=== PATIENT | male | born 1955 | race Caucasian/White ===

== ENCOUNTER 2019-09-12 10:30 | Inpatient (IN) | payer MEDICAID ==
[~2019-09-12] VITALS: Ht 182.9 cm; Wt 103.2 kg
--- NOTE | 2019-09-12 10:44 | NUR ---
Pt friend; Ria [phone]
--- NOTE | 2019-09-12 11:11 | NUR ---
PATIENT SATUATED WITH MARC URINE WITH 5 MEDIUM BLOOD CLOTS ON URINE SOAKED LINEN: PERICARE, COMPLETE LINEN CHANGE, DIAPER APPLIED
--- NOTE | 2019-09-12 11:15 | NUR ---
dvd given to radiology to download from [facility], gave copy of pertinent, lab, meds, and ct report to dr Corrales for review, no orders at this time.
[2019-09-12] MEDS ORDERED: ondansetron/PF 4mg/2ml inj IV PRN ×2 (14:05→22:45)
[2019-09-12] MEDS ORDERED: acetaminophen 325mg tablet PO PRN (14:05)
[2019-09-12] MEDS ORDERED: CARV6.256 PO (15:00)
[2019-09-12] MEDS ORDERED: HYDR-4069 PO (15:00)
--- NOTE | 2019-09-12 15:15 | NUR ---
SPOKE WITH DR TEE UROLOGIST: INFORMED THAT NO CATHETER WAS ORDERED, ONLY SOME MEDICATIONS WERE RECENTLY ORDERED BY DR HOPPER. DR TEE WOULD LIKE A [address] [place] [address] WELSH INSERTED AND BLADDER MANUALLY FLUSHED WITH 200 ML STERILE NORMAL SALINE AND CONTINUE FLUSHING UNTIL NO CLOTS VISUALIZED AND WOULD LIKE A POST VOID RESIDUAL WITH THE BLADDER SCANNER
[2019-09-12] MEDS ORDERED: LIDOcaine 2% 10ml TOPICAL JELLY (Urojet) MM ONE ×2 (15:25→18:15)
[2019-09-12] MEDS ORDERED: LOSA100T57 PO (15:27)
[2019-09-12] MEDS ORDERED: LEVO25TA2 PO (15:27)
[2019-09-12] MEDS ORDERED: CLON0.2T PO (15:27)
[2019-09-12] MEDS: normal saline 1000ml 1,000 ML IV SCH (15:40)
--- NOTE | 2019-09-12 16:31 | NUR ---
PHONE REPORT TO RN [place] [facility]. PATIENT [facility] TO ROOM 355B.
--- NOTE | 2019-09-12 16:35 | NUR ---
Report received from ED RN
--- NOTE | 2019-09-12 16:38 | NUR ---
PHONE REPORT TO YONNY OSBORNE. PATIENT TO GO TO ROOM 355B ON [facility] MONITORED WITH TONEY RN. PATIENT'S ONLY BELONGINGS ARE THE SOCKS ON HIS FEET AND HIS PROSTHETIC NOSE. DISCUSSED PLAN OF CARE DR TEE TO COME SEE THE PATIENT AND MAY DO CBI. [address] UROLOGY CART TO ROOM 355. ALL VITALS, LABS FROM [facility], ASSESSMENT DISCUSSED.
--- NOTE | 2019-09-12 16:55 | NUR ---
Pt arrived to room 355B from ED
[2019-09-12 17:00] VITALS: BP 188/81
[2019-09-12] MEDS ORDERED: opium/belladonna alkaloids No. 15A 30mg rectal suppository RC PRN (17:30)
[2019-09-12 17:46] LABS: BASOPHILS # (AUTO) 0.1 X10'3 (0-0.2); LYMPHOCYTES # (AUTO) 0.9 X10'3 (1.1-4.8); MEAN CORPUSCULAR HEMOGLOBIN 30.2 PG (27.0-31.0); MONOCYTES # (AUTO) 1.2 X10'3 (0-0.9); RED BLOOD COUNT 3.31 X10'6 (4.70-6.10); RED CELL DISTRIBUTION WIDTH 16.2 % (11.5-14.5)
[2019-09-12 17:47] LABS: BASOPHILS % (AUTO) 0.8 % (0-1); EOSINOPHILS % (AUTO) 0.3 % (0-6); HEMATOCRIT 29.2 % (42.0-52.0); LYMPHOCYTES % (AUTO) 11.3 % (21-51); MEAN CORPUSCULAR HGB CONC 34.3 g/dL (33.0-36.5); MEAN CORPUSCULAR VOLUME 88.1 FL (78-98); MEAN PLATELET VOLUME 8.3 FL (7.4-10.4); MONOCYTES % (AUTO) 14.1 % (2-12); NEUTROPHILS # (AUTO) 6.1 X10'3 (1.8-7.7); NEUTROPHILS % (AUTO) 73.5 % (42-75); PLATELET COUNT 257 X10'3 (140-440); WHITE BLOOD COUNT 8.3 X10'3 (4.5-11.0)
[2019-09-12 17:57] LABS: PARTIAL THROMBOPLASTIN TIME 36 SECONDS (22-32)
[2019-09-12 17:58] LABS: ALANINE AMINOTRANSFERASE 22 U/L (12-78); ALBUMIN/GLOBULIN RATIO 0.8 (1.1-1.5); ALKALINE PHOSPHATASE 72 IU/L (46-116); ANION GAP 15 (8-16); ASPARTATE AMINO TRANSFERASE 21 U/L (10-37); BILIRUBIN,TOTAL 0.3 MG/DL (0.1-1.0); BLOOD UREA NITROGEN 52 MG/DL (7-18); BUN/CREATININE RATIO 13.3 (5.4-32.0); CALCIUM 8.2 MG/DL (8.5-10.1); CHLORIDE 104 MMOL/L (99-107); GLUCOSE 79 MG/DL (70-104); MAGNESIUM 2.1 MG/DL (1.5-2.4); PHOSPHORUS 4.3 MG/DL (2.3-4.5); POTASSIUM 3.3 MMOL/L (3.5-5.1); SODIUM 138 MMOL/L (135-145); TOTAL CARBON DIOXIDE 19.4 MMOL/L (24-32); TOTAL PROTEIN 6.8 G/DL (6.4-8.2); eGFR 16 ML/MIN
--- NOTE | 2019-09-12 18:30 | NUR ---
Patient in room [facility]. I have received report from Bebe BLANCAS and had the opportunity to ask questions and assume patient care.
--- NOTE | 2019-09-12 18:30 | NUR ---
Patient in room [facility]. I have received report from Bebe BLANCAS and had the opportunity to ask questions and assume patient care.
--- NOTE | 2019-09-12 19:00 | NUR ---
Problems reprioritized. Patient report given, questions answered & plan of care reviewed with YONNY Lazo & YONNY Miguel.
[2019-09-12 20:00] VITALS: BP 160/74
[2019-09-12 20:58] VITALS: BP 160/74
[2019-09-12] MEDS ORDERED: fentaNYL/PF 50MCG/1 ML 2ML syringe ONE ×2 (21:20→23:52)
[2019-09-12] MEDS ORDERED: midazolam 2 mg/2 ml injection ONE (21:21)
[2019-09-12] MEDS ORDERED: sevoflurane 250ml liquid IH ONE (21:30)
[2019-09-12] MEDS ORDERED: hydrALAZINE 20mg/ml inj. IV ONE (21:30)
[2019-09-12] MEDS ORDERED: ringers solution, lacted 1,000 ML IV SCH (22:42)
[2019-09-12] MEDS ORDERED: HYDROmorphone inj. 0.5 MG/0.5 ML DISP.SYRIN IV PRN ×2 (22:45)
[2019-09-12] MEDS ORDERED: morphine 4 MG/ML inj SYRINge IV PRN (22:45)
[2019-09-12] MEDS ORDERED: neostigmine methylsulfate 1 MG/ML 10ml vial ONE (23:51)
[2019-09-12] MEDS ORDERED: ondansetron/PF 4mg/2ml inj ONE (23:51)
[2019-09-12] MEDS ORDERED: LIDOcaine 2% (20mg/ml) 5ml vial ONE (23:51)
[2019-09-12] MEDS ORDERED: rocuronium 10mg/ml inj IV ONE (23:51)
[2019-09-12] MEDS ORDERED: propofol inj 20 ML IV ONE (23:51)
[2019-09-12] MEDS ORDERED: dexamethasone sod phosphate 4mg/ml inj. ONE (23:51)
[2019-09-12] MEDS ORDERED: glycopyrrolate 0.2mg/ml inj ONE (23:51)
[2019-09-13] VITALS (16 sets, daily range): BP systolic 133–204; BP diastolic 50–98
--- NOTE | 2019-09-13 00:35 | NUR ---
Received from OR via , accompanied by Anesthesiologist DR KILLIAN and report given by Anesthesiolgist. PT IS SLEEPING WITH REGULAR SNORING RESPIRATIONS, NO C/O PAIN, SKIN WARM AND PINK, PULSES +3, WELSH TO GRAVITY WITH .9NS IRRIGATION, LIGHT PINK DRAINAGE, NO SCD'S (WILL NEED TO GET ON SURGICAL-PACU OUT), PIV RIGHT AC 18G PATENT. ISTAT DRAWN, RESULTS SHOWN TO DR KILLIAN, NO NEW ORDERS.
[2019-09-13] MEDS ORDERED: HYDROcodone/acetaminophen 5mg/325mg tablet PO PRN (00:40)
[2019-09-13 00:56] LABS: ISTAT CREATININE 3.9 mg/dL (0.8-1.3); ISTAT HGB 8.5 g/dl (14.0-18.0); ISTAT IONIZED CALCIUM 1.03 mmol/L (1.03-1.32); ISTAT K 3.9 mmol/L (3.5-5.1); POC BUN/CREATININE RATIO 13.1 (5.4-32.0)
--- NOTE | 2019-09-13 01:05 | NUR ---
Report called to receiving nurse. Transferred via BED Belongings . Special Issues communicated to receiving nurse FLAVIO BLANCAS. PT IS WAKING TO VOICE, MOVING EXT X 4, NO C/O PAIN, WELSH TO GRAVITY WITH IRRIGATION RUNNING, PIV PATENT, VSS, MEETS CRITERIA FOR TRANSFER.
--- NOTE | 2019-09-13 01:05 | NUR ---
Received report from Shameka BLANCAS in the recovery room. Pt arrived back on the unit with VSS, FC to gravity with continuous bladder irrigation running, A/O and on R/A. 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 Pt has no signs of distress, will continue to monitor.
[2019-09-13] MEDS: normal saline 1000ml 1,000 ML IV SCH ×2 (02:24→08:55)
[2019-09-13] MEDS: ceFAZolin 1GM/D5W- ADD-VANTAGE 50 ML IV SCH ×3 (02:25→16:54)
[2019-09-13] MEDS ORDERED: HYDROmorphone 1 mg/ml syringe IV ONE (02:40)
[2019-09-13 06:22] LABS: BASOPHILS % (AUTO) 0.3 % (0-1); EOSINOPHILS % (AUTO) 0 % (0-6); HEMATOCRIT 27.9 % (42.0-52.0); HEMOGLOBIN 9.3 g/dl (14.0-17.9); LYMPHOCYTES # (AUTO) 0.6 X10'3 (1.1-4.8); LYMPHOCYTES % (AUTO) 3.7 % (21-51); MEAN CORPUSCULAR HEMOGLOBIN 29.6 PG (27.0-31.0); MEAN CORPUSCULAR HGB CONC 33.2 g/dL (33.0-36.5); MEAN CORPUSCULAR VOLUME 88.9 FL (78-98); MEAN PLATELET VOLUME 8.4 FL (7.4-10.4); MONOCYTES # (AUTO) 1.1 X10'3 (0-0.9); MONOCYTES % (AUTO) 7.5 % (2-12); NEUTROPHILS # (AUTO) 13.1 X10'3 (1.8-7.7); NEUTROPHILS % (AUTO) 88.5 % (42-75); PLATELET COUNT 245 X10'3 (140-440); RED BLOOD COUNT 3.14 X10'6 (4.70-6.10); RED CELL DISTRIBUTION WIDTH 16.1 % (11.5-14.5); WHITE BLOOD COUNT 14.8 X10'3 (4.5-11.0)
[2019-09-13 06:48] LABS: ALBUMIN 2.8 G/DL (3.4-5.0); ANION GAP 15 (8-16); BLOOD UREA NITROGEN 48 MG/DL (7-18); BUN/CREATININE RATIO 13.5 (5.4-32.0); CALCIUM 7.4 MG/DL (8.5-10.1); CHLORIDE 107 MMOL/L (99-107); CREATININE 3.56 MG/DL (0.60-1.10); GLUCOSE 103 MG/DL (70-104); POTASSIUM 3.8 MMOL/L (3.5-5.1); SODIUM 139 MMOL/L (135-145); TOTAL CARBON DIOXIDE 17.4 MMOL/L (24-32); eGFR 17 ML/MIN
--- NOTE | 2019-09-13 06:48 | NUR ---
Problems reprioritized. Patient report given, questions answered & plan of care reviewed with Calixto BLANCAS.
--- NOTE | 2019-09-13 07:21 | NUR ---
Problems reprioritized. Patient report given, questions answered & plan of care reviewed with Calixto BLANCAS.
[2019-09-13] MEDS: sodium bicarbonate (8.4%) inj. 75 MEQ in dextrose 5%-water 500 ML IV SCH ×4 (09:53→23:54)
--- NOTE | 2019-09-13 10:48 | NUR ---
Ultra sound tech at bedside.
[2019-09-13] MEDS: levoTHYROXINE 25mcg tablet PO SCH (11:20)
--- NOTE | 2019-09-13 17:06 | NUR ---
Student documentation: I have reviewed and agree with assessments documented by Rob Student Nurse.
--- NOTE | 2019-09-13 18:12 | NUR ---
Problems reprioritized. Patient report given, questions answered & plan of care reviewed with jared rn.
[2019-09-13] MEDS: lactobacillus rhamnosus 10,000 MMU CELLS/CAPSULE PO SCH (20:18)
[2019-09-13] MEDS: cloNIDine 0.1 mg tablet PO SCH (20:19)
[2019-09-13] MEDS: carvedilol 6.25mg tablet PO SCH (20:19)
[2019-09-13] MEDS: hyDRALAzine 10mg tablet PO SCH (20:19)
[2019-09-14] VITALS (13 sets, daily range): BP systolic 115–166; BP diastolic 51–70
[2019-09-14] MEDS: ceFAZolin 1GM/D5W- ADD-VANTAGE 50 ML IV SCH ×4 (00:26→23:26)
[2019-09-14] MEDS: sodium bicarbonate (8.4%) inj. 75 MEQ in dextrose 5%-water 500 ML IV SCH ×3 (02:24→13:22)
[2019-09-14 05:10] LABS: BASOPHILS % (AUTO) 0.3 % (0-1); EOSINOPHILS % (AUTO) 0.1 % (0-6); HEMOGLOBIN 7.1 g/dl (14.0-17.9); LYMPHOCYTES # (AUTO) 1.2 X10'3 (1.1-4.8); LYMPHOCYTES % (AUTO) 15.1 % (21-51); MEAN CORPUSCULAR HEMOGLOBIN 30.1 PG (27.0-31.0); MEAN CORPUSCULAR HGB CONC 34.1 g/dL (33.0-36.5); MEAN CORPUSCULAR VOLUME 88.2 FL (78-98); MEAN PLATELET VOLUME 8.4 FL (7.4-10.4); MONOCYTES % (AUTO) 12.2 % (2-12); NEUTROPHILS # (AUTO) 5.7 X10'3 (1.8-7.7); NEUTROPHILS % (AUTO) 72.3 % (42-75); PLATELET COUNT 182 X10'3 (140-440); RED BLOOD COUNT 2.35 X10'6 (4.70-6.10); WHITE BLOOD COUNT 7.9 X10'3 (4.5-11.0)
[2019-09-14 05:30] LABS: ALBUMIN 2.2 G/DL (3.4-5.0); ANION GAP 11 (8-16); BLOOD UREA NITROGEN 44 MG/DL (7-18); BUN/CREATININE RATIO 13.4 (5.4-32.0); CALCIUM 6.7 MG/DL (8.5-10.1); CHLORIDE 103 MMOL/L (99-107); CREATININE 3.29 MG/DL (0.60-1.10); GLUCOSE 104 MG/DL (70-104); SODIUM 139 MMOL/L (135-145); eGFR 19 ML/MIN
[2019-09-14 05:32] LABS: POTASSIUM 2.7 MMOL/L (3.5-5.1)
[2019-09-14] MEDS ORDERED: potassium Cl 20 mEq SR tablet PO STA (05:56)
--- NOTE | 2019-09-14 06:50 | NUR ---
Lab called reporting H&H & PLT results showing a significant drop from the previous day; repeat labs ordered to verify accuracy
[2019-09-14 07:06] LABS: HEMATOCRIT 20.7 % (42.0-52.0)
[2019-09-14 07:13] LABS: ALBUMIN 2.3 G/DL (3.4-5.0); ANION GAP 7 (8-16); BLOOD UREA NITROGEN 44 MG/DL (7-18); BUN/CREATININE RATIO 13.2 (5.4-32.0); CALCIUM 6.6 MG/DL (8.5-10.1); CHLORIDE 103 MMOL/L (99-107); CREATININE 3.33 MG/DL (0.60-1.10); GLUCOSE 97 MG/DL (70-104); SODIUM 138 MMOL/L (135-145); TOTAL CARBON DIOXIDE 28.1 MMOL/L (24-32); eGFR 19 ML/MIN
[2019-09-14 07:18] LABS: POTASSIUM 2.7 MMOL/L (3.5-5.1)
[2019-09-14] MEDS: cloNIDine 0.1 mg tablet PO SCH ×2 (07:40→19:49)
[2019-09-14] MEDS: levoTHYROXINE 25mcg tablet PO SCH (07:40)
[2019-09-14] MEDS: carvedilol 6.25mg tablet PO SCH ×2 (07:40→20:00)
[2019-09-14] MEDS: losartan 50mg tablet PO SCH (07:41)
[2019-09-14] MEDS: lactobacillus rhamnosus 10,000 MMU CELLS/CAPSULE PO SCH ×2 (07:41→19:49)
[2019-09-14] MEDS: hyDRALAzine 10mg tablet PO SCH ×2 (07:51→19:49)
[2019-09-14 08:25] LABS: BASOPHILS % (AUTO) 0.4 % (0-1); EOSINOPHILS % (AUTO) 0.2 % (0-6); HEMOGLOBIN 7.4 g/dl (14.0-17.9); LYMPHOCYTES # (AUTO) 1.1 X10'3 (1.1-4.8); MEAN CORPUSCULAR HGB CONC 34.4 g/dL (33.0-36.5); MEAN CORPUSCULAR VOLUME 87.4 FL (78-98); MEAN PLATELET VOLUME 8.1 FL (7.4-10.4); MONOCYTES # (AUTO) 1.1 X10'3 (0-0.9); MONOCYTES % (AUTO) 13.2 % (2-12); NEUTROPHILS # (AUTO) 5.8 X10'3 (1.8-7.7); NEUTROPHILS % (AUTO) 72.2 % (42-75); PLATELET COUNT 176 X10'3 (140-440); RED BLOOD COUNT 2.45 X10'6 (4.70-6.10); WHITE BLOOD COUNT 8.1 X10'3 (4.5-11.0)
[2019-09-14 08:30] LABS: HEMATOCRIT 21.4 % (42.0-52.0)
[2019-09-14] MEDS ORDERED: FLU VACC QS 2019-20 (6 MOS UP) 60 MCG/0.5 ML VIAL IMVAC ONE (10:00)
[2019-09-14] MEDS ORDERED: furosemide 40mg/4ml inj IV ONE (12:25)
[2019-09-14] MEDS: mag hydrox/Alum hydrox/simeth 30ml oral suspension PO PRN (13:22)
[2019-09-14 13:28] LABS: A/G RATIO 0.9 (0.7-1.7); ALBUMIN 2.6 g/dL (2.9-4.4); BETA GLOBULIN 0.9 g/dL (0.7-1.3); GAMMA GLOBULIN 0.5 g/dL (0.4-1.8); GLOBULIN, TOTAL 2.8 g/dL (2.2-3.9); M-SPIKE Not Observed g/dL (Not Observed); PROTEIN, TOTAL, SERUM 5.4 g/dL (6.0-8.5)
[2019-09-14] MEDS ORDERED: potassium Cl 20 mEq SR tablet PO PRN (17:45)
[2019-09-14] MEDS ORDERED: potassium CL 10mEq/100ml bag 100 ML IV PRN (17:45)
--- NOTE | 2019-09-14 18:31 | NUR ---
Problems reprioritized. Patient report given, questions answered & plan of care reviewed with Frantz BLANCAS.
[2019-09-14] MEDS: potassium Cl 20 mEq SR tablet PO PRN ×2 (19:49→23:26)
--- NOTE | 2019-09-14 20:04 | NUR ---
Admin 20meq potassium replacement instead of 40meq per protocol to admin half dose is serum creatinine above 2.5 pt's current value is 3.33
[2019-09-15] VITALS: BP 166/68
[2019-09-15] MEDS: potassium Cl 20 mEq SR tablet PO PRN (04:44)
--- NOTE | 2019-09-15 06:27 | NUR ---
Patient in room [facility]. I have received report from Frantz BLANCAS and had the opportunity to ask questions and assume patient care.
--- NOTE | 2019-09-15 06:27 | NUR ---
report given to YONNY Hargrove
[2019-09-15 06:37] LABS: BASOPHILS % (AUTO) 0.3 % (0-1); EOSINOPHILS % (AUTO) 0.5 % (0-6); HEMATOCRIT 30.1 % (42.0-52.0); HEMOGLOBIN 10.5 g/dl (14.0-17.9); LYMPHOCYTES # (AUTO) 1.2 X10'3 (1.1-4.8); LYMPHOCYTES % (AUTO) 13.9 % (21-51); MEAN CORPUSCULAR HEMOGLOBIN 30.5 PG (27.0-31.0); MEAN CORPUSCULAR HGB CONC 34.8 g/dL (33.0-36.5); MEAN CORPUSCULAR VOLUME 87.5 FL (78-98); MEAN PLATELET VOLUME 8.7 FL (7.4-10.4); MONOCYTES # (AUTO) 1.3 X10'3 (0-0.9); MONOCYTES % (AUTO) 14.7 % (2-12); NEUTROPHILS # (AUTO) 6.1 X10'3 (1.8-7.7); NEUTROPHILS % (AUTO) 70.6 % (42-75); PLATELET COUNT 189 X10'3 (140-440); RED BLOOD COUNT 3.44 X10'6 (4.70-6.10); RED CELL DISTRIBUTION WIDTH 15.7 % (11.5-14.5); WHITE BLOOD COUNT 8.6 X10'3 (4.5-11.0)
[2019-09-15 06:47] LABS: ALBUMIN 2.5 G/DL (3.4-5.0); ANION GAP 8 (8-16); BLOOD UREA NITROGEN 41 MG/DL (7-18); BUN/CREATININE RATIO 12.1 (5.4-32.0); CALCIUM 7.3 MG/DL (8.5-10.1); CHLORIDE 106 MMOL/L (99-107); CREATININE 3.39 MG/DL (0.60-1.10); GLUCOSE 85 MG/DL (70-104); POTASSIUM 3.2 MMOL/L (3.5-5.1); SODIUM 142 MMOL/L (135-145); TOTAL CARBON DIOXIDE 28.1 MMOL/L (24-32); eGFR 18 ML/MIN
[2019-09-15 07:00] VITALS: BP 163/62
[2019-09-15] MEDS ORDERED: bisacodyl 10mg suppository rectal RC PRN (07:55)
[2019-09-15] MEDS: cloNIDine 0.1 mg tablet PO SCH (08:00)
[2019-09-15] MEDS: carvedilol 6.25mg tablet PO SCH (08:00)
[2019-09-15] MEDS: hyDRALAzine 10mg tablet PO SCH (08:39)
[2019-09-15] MEDS: levoTHYROXINE 25mcg tablet PO SCH (08:39)
[2019-09-15] MEDS: losartan 50mg tablet PO SCH (08:39)
[2019-09-15] MEDS: docusate sod 100mg capsule PO SCH ×2 (08:39→20:00)
[2019-09-15] MEDS: lactobacillus rhamnosus 10,000 MMU CELLS/CAPSULE PO SCH ×2 (08:39→20:58)
[2019-09-15] MEDS: ceFAZolin 1GM/D5W- ADD-VANTAGE 50 ML IV SCH ×2 (08:44→17:41)
[2019-09-15] MEDS: potassium chloride 10mEq ER tablet PO PRN ×2 (10:53→20:59)
[2019-09-15 11:00] VITALS: BP 155/86
[2019-09-15] MEDS ORDERED: HYDR-4069 PO (14:24)
[2019-09-15] MEDS ORDERED: CARV6.256 PO (14:24)
--- NOTE | 2019-09-15 16:21 | NUR ---
Physical therapist at bedside. I asked PT to evaluate his ambulation and transfer safety prior to discharge Addendum: 09/15/19 at 1639 by Ladonna Langley RN Per Lobo PT, patient experienced dizziness, weak, and walked only about 40 feet. Patient also have told the PT that he does not have anybody to help him at all times. Charge nurse Danielle emza
--- NOTE | 2019-09-15 16:39 | NUR ---
I called Dr. Flecther regarding patient transportation issue, no reliable help at home and PT evaluation that patient complaint of dizziness, weak, and patient walked only about [address] Fletcher instructed me to contact Isis the Operations Technician. I called Isis but no answer so I requested her to call me back.
[2019-09-15 18:00] VITALS: BP 183/77
--- NOTE | 2019-09-15 18:15 | NUR ---
Patient in room [facility]. I have received report from Ladonna BLANCAS and had the opportunity to ask questions and assume patient care.
--- NOTE | 2019-09-15 19:33 | NUR ---
Problems reprioritized. Patient report given, questions answered & plan of care reviewed with Conner BLANCAS.
[2019-09-15] MEDS ORDERED: carVEDilol 3.125mg tablet PO SCH (20:00)
[2019-09-15] MEDS ORDERED: amLODIPine 5mg tablet PO ONE (20:30)
[2019-09-15] MEDS: hydrALAZINE 25 MG tablet PO SCH (20:59)
[2019-09-15] MEDS: mag hydrox/Alum hydrox/simeth 30ml oral suspension PO PRN (20:59)
[2019-09-15] MEDS: polyethylene glycol 3350 17gm powd pack PO SCH (21:03)
[2019-09-16] VITALS: BP 169/68
[2019-09-16] MEDS: ceFAZolin 1GM/D5W- ADD-VANTAGE 50 ML IV SCH ×3 (00:27→16:52)
[2019-09-16] MEDS: HYDROmorphone 1 mg/ml syringe IV PRN ×2 (05:01→09:54)
[2019-09-16 06:29] LABS: BASOPHILS % (AUTO) 0.4 % (0-1); EOSINOPHILS # (AUTO) 0.1 X10'3 (0-0.9); EOSINOPHILS % (AUTO) 0.8 % (0-6); HEMATOCRIT 31.1 % (42.0-52.0); HEMOGLOBIN 10.6 g/dl (14.0-17.9); LYMPHOCYTES % (AUTO) 8.5 % (21-51); MEAN CORPUSCULAR HEMOGLOBIN 30.1 PG (27.0-31.0); MEAN CORPUSCULAR HGB CONC 34.1 g/dL (33.0-36.5); MEAN CORPUSCULAR VOLUME 88.4 FL (78-98); MONOCYTES # (AUTO) 1.3 X10'3 (0-0.9); MONOCYTES % (AUTO) 11.2 % (2-12); NEUTROPHILS # (AUTO) 9.3 X10'3 (1.8-7.7); NEUTROPHILS % (AUTO) 79.1 % (42-75); PLATELET COUNT 250 X10'3 (140-440); RED BLOOD COUNT 3.52 X10'6 (4.70-6.10); WHITE BLOOD COUNT 11.7 X10'3 (4.5-11.0)
--- NOTE | 2019-09-16 06:30 | NUR ---
Patient in room [facility]. I have received report from Conner BLANCAS and had the opportunity to ask questions and assume patient care.
--- NOTE | 2019-09-16 06:31 | NUR ---
Problems reprioritized. Patient report given, questions answered & plan of care reviewed with Monster RN.
[2019-09-16 06:55] LABS: ALBUMIN 2.5 G/DL (3.4-5.0); ANION GAP 8 (8-16); BLOOD UREA NITROGEN 36 MG/DL (7-18); BUN/CREATININE RATIO 11.8 (5.4-32.0); CALCIUM 7.4 MG/DL (8.5-10.1); CHLORIDE 106 MMOL/L (99-107); CREATININE 3.04 MG/DL (0.60-1.10); GLUCOSE 87 MG/DL (70-104); POTASSIUM 3.5 MMOL/L (3.5-5.1); SODIUM 139 MMOL/L (135-145); TOTAL CARBON DIOXIDE 25.4 MMOL/L (24-32); eGFR 21 ML/MIN
[2019-09-16 08:08] VITALS: BP 164/71
[2019-09-16] MEDS: hydrALAZINE 25 MG tablet PO SCH ×2 (09:36→20:37)
[2019-09-16] MEDS: levoTHYROXINE 25mcg tablet PO SCH (09:36)
[2019-09-16] MEDS: docusate sod 100mg capsule PO SCH ×2 (09:37→20:00)
[2019-09-16] MEDS: losartan 50mg tablet PO SCH (09:37)
[2019-09-16] MEDS: amLODIPine 5mg tablet PO SCH (09:37)
[2019-09-16] MEDS: lactobacillus rhamnosus 10,000 MMU CELLS/CAPSULE PO SCH ×2 (09:38→20:37)
[2019-09-16 11:00] VITALS: BP 141/58
[2019-09-16 18:00] VITALS: BP 157/59
--- NOTE | 2019-09-16 18:23 | NUR ---
Problems reprioritized. Patient report given, questions answered & plan of care reviewed with Conner BLANCAS.
[2019-09-16] MEDS: mag hydrox/Alum hydrox/simeth 30ml oral suspension PO PRN (18:51)
[2019-09-16] MEDS: polyethylene glycol 3350 17gm powd pack PO SCH (20:36)
[2019-09-17] VITALS: BP 175/80
[2019-09-17] MEDS: ceFAZolin 1GM/D5W- ADD-VANTAGE 50 ML IV SCH ×2 (01:16→09:13)
--- NOTE | 2019-09-17 06:32 | NUR ---
Patient in room [facility]. I have received report from DWAYNE BLANCAS and had the opportunity to ask questions and assume patient care.
[2019-09-17 07:13] LABS: BASOPHILS # (AUTO) 0.1 X10'3 (0-0.2); BASOPHILS % (AUTO) 0.5 % (0-1); EOSINOPHILS # (AUTO) 0.1 X10'3 (0-0.9); EOSINOPHILS % (AUTO) 0.6 % (0-6); HEMATOCRIT 31.1 % (42.0-52.0); HEMOGLOBIN 10.5 g/dl (14.0-17.9); LYMPHOCYTES # (AUTO) 1.3 X10'3 (1.1-4.8); LYMPHOCYTES % (AUTO) 9.6 % (21-51); MEAN CORPUSCULAR HEMOGLOBIN 29.7 PG (27.0-31.0); MEAN CORPUSCULAR HGB CONC 33.7 g/dL (33.0-36.5); MONOCYTES % (AUTO) 14.5 % (2-12); NEUTROPHILS # (AUTO) 10.2 X10'3 (1.8-7.7); NEUTROPHILS % (AUTO) 74.8 % (42-75); PLATELET COUNT 291 X10'3 (140-440); RED BLOOD COUNT 3.54 X10'6 (4.70-6.10); WHITE BLOOD COUNT 13.6 X10'3 (4.5-11.0)
[2019-09-17 07:28] VITALS: BP 172/65
[2019-09-17 07:29] LABS: ALBUMIN 2.3 G/DL (3.4-5.0); ANION GAP 11 (8-16); BLOOD UREA NITROGEN 31 MG/DL (7-18); BUN/CREATININE RATIO 10.5 (5.4-32.0); CALCIUM 7.7 MG/DL (8.5-10.1); CHLORIDE 105 MMOL/L (99-107); CREATININE 2.95 MG/DL (0.60-1.10); GLUCOSE 93 MG/DL (70-104); POTASSIUM 3.7 MMOL/L (3.5-5.1); SODIUM 139 MMOL/L (135-145); TOTAL CARBON DIOXIDE 22.9 MMOL/L (24-32); eGFR 22 ML/MIN
[2019-09-17] MEDS: docusate sod 100mg capsule PO SCH (09:11)
[2019-09-17] MEDS: amLODIPine 5mg tablet PO SCH (09:11)
[2019-09-17] MEDS: hydrALAZINE 25 MG tablet PO SCH (09:11)
[2019-09-17] MEDS: levoTHYROXINE 25mcg tablet PO SCH (09:11)
[2019-09-17] MEDS: lactobacillus rhamnosus 10,000 MMU CELLS/CAPSULE PO SCH (09:12)
[2019-09-17] MEDS: losartan 50mg tablet PO SCH (09:12)
--- NOTE | 2019-09-17 15:50 | NUR ---
[facility] SERVICES PROVIDED BY [facility].
--- NOTE | 2019-09-17 15:50 | NUR ---
PATIENT DISCHARGED HOME AT THIS TIME. IV'S TAKEN OUT AT THIS TIME. NO BLEEDING AND CANULAS WERE WHOLE AND INTACT UPON REMOVAL. PATIENT LEFT WITH WELSH AND REPLACEMENT BAGS. PATIENT WAS EDUCATED ON CHANGING BAGS WELL. PATIENT WAS ENCOURAGED TO WATCH FOR HEMATURIA WORSENING WELL. PATIENT WAS GIVE PICKUP WALKER AT DISCHARGE ALSO. PATIENT HAD MEDICATION CHANGES, NO KNEW MEDICATIONS AT THIS TIME. PATIENT WAS TAKEN TO HOME IN [place] BY [facility]
== END 2019-09-17 15:45 | disposition home health service (06) | DRG 446 ==
LOC: ER 10:31 → ED HOLD 15:10 → SUR 3N 16:50
PROVIDERS: ADMIT Internal Medicine; ATTEND Internal Medicine
PROC: 0TCB8ZZ Extirpation of Matter from Bladder, Via Natural or Artificial Opening Endoscopic (ICD-10-PCS; principal; 2019-09-13)
PROC: 0TBB8ZZ Excision of Bladder, Via Natural or Artificial Opening Endoscopic (ICD-10-PCS; 2019-09-13)
PROC: 30233N1 Transfusion of Nonautologous Red Blood Cells into Peripheral Vein, Percutaneous Approach (ICD-10-PCS; 2019-09-14)
PROC: 3E02340 Introduction of Influenza Vaccine into Muscle, Percutaneous Approach (ICD-10-PCS; 2019-09-14)
DX: C67.9 Malignant neoplasm of bladder, unspecified (principal); N17.9 Acute kidney failure, unspecified; E87.2 Acidosis; D62 Acute posthemorrhagic anemia; N18.4 Chronic kidney disease, stage 4 (severe); E03.9 Hypothyroidism, unspecified; F17.210 Nicotine dependence, cigarettes, uncomplicated; E87.6 Hypokalemia; I12.9 Hypertensive chronic kidney disease with stage 1 through stage 4 chronic kidney disease, or unspecified chronic kidney disease; Z85.820 Personal history of malignant melanoma of skin; Z88.8 Allergy status to other drugs, medicaments and biological substances; Z79.899 Other long term (current) drug therapy; Z23 Encounter for immunization; T47.1X5A Adverse effect of other antacids and anti-gastric-secretion drugs, initial encounter; R31.0 Gross hematuria
CPT/HCPCS: 36415; 76775; 80047; 80048; 80053; 83735; 84100; 84132; 84155; 84165; 85025; 85610; 85730; 86885; 86900; 86901; 86920; 87081; 97110; 97116; 97162; 97530; 99285; A4346; A4618; G0378; J0360; J0690; J1100; J1170; J1940; J2001; J2250; J2405; J2704; J2710; J3010; J3490; J7030; J7120; P9016; Q2037